=== PATIENT | female | born 1965 | race American Indian/Alaskan Native ===

== ENCOUNTER 2016-10-29 11:02 | Emergency (ER) | payer MEDICARE ==
[2016-10-29 11:47] VITALS: BP 118/82
[2016-10-29] MEDS ORDERED: NACL 0.9% 1000 ML 1,000 ML IV ONE (12:09)
[2016-10-29 12:37] LABS: Basophils % (Auto) 0.7 % (0.0-1.8); Eosinophils % (Auto) 0.7 % (0.0-4.3); Hematocrit 41.5 % (30.3-42.9); Hemoglobin 13.5 gm/dl (10.1-14.3); Mean Corpuscular HGB Conc 33 % (30-34); Mean Corpuscular Hemoglobin 27 pg (28-32); Mean Corpuscular Volume 83 fl (79-97); Platelet Count 319 K/mm3 (140-440); Red Blood Count 5.01 M/mm3 (3.65-5.03); Red Cell Distribution Width 13.6 % (13.2-15.2)
[2016-10-29 12:55] LABS: Alanine Aminotransferase 12 units/L (7-56); Albumin 3.9 g/dL (3.9-5); Alkaline Phosphatase 106 units/L (35-129); Amylase 57 units/L (27-131); BUN/Creatinine Ratio 22.85; Bilirubin,Total 0.4 mg/dL (0.1-1.2); Blood Urea Nitrogen 16 mg/dL (7-17); Calcium 9.6 mg/dL (8.4-10.2); Carbon Dioxide 19 mmol/L (22-30); Glucose 241 mg/dL (65-100); Lipase 28 units/L (13-60); Total Protein 7.7 g/dL (6.3-8.2)
[2016-10-29 12:56] LABS: Anion Gap 21 mmol/L; Chloride 96.6 mmol/L (98-107); Potassium 3.9 mmol/L (3.6-5.0); Sodium 133 mmol/L (137-145)
--- NOTE | 2016-10-29 16:34 | Emergency Department Report ---
Entered by SARAH BETH TUTTLE, acting as scribe for ZEV DENNY NP. Chief Complaint: Nausea/Vomiting/Diarrhea Stated Complaint: BP LOW/SENT BY PHY/NEED FLUIDS Time Seen by Provider: 10/29/16 12:00 - HPI History of Present Illness: Patient presents to the ED c/o of low blood sugar that began 3 days ago. Associated symptoms include nausea, lightheadedness, and abdominal pain. Denies vomiting and diarrhea. Patient had lab work done 3 days ago and PCP was concerned with her blood sugar level, and advised her to come to the ED. An ultrasound and Ct scan was taken, and her ultrasound results were normal. The CT scan results hasn't came back yet. - ROS Review of Systems: All systems are negative unless stated in HPI above. - Exam Vital Signs: Vital Signs 10/29/16 11:39 Temperature 98.5 F Pulse Rate 106 H Respiratory 16 Rate Blood Pressure 118/82 O2 Sat by Pulse 98 Oximetry Physical Exam: General: alert and oriented x 3 MSE screening note: Focused history and physical exam performed. Due to findings the following was ordered: ED Medical Decision Making - Lab Data Result diagrams: 10/29/16 12:19 10/29/16 12:19 - Medical Decision Making Patient seen by provider in fast track. Patient will be taken to get lab work done. SENT BY PCP RECENT US NEG CT PENDING FOR EVAL ED Disposition for MSE Condition: Stable This documentation as recorded by the scribe,SARAH BETH TUTTLE,accurately reflects the service I personally performed and the decisions made by me,ZEV CERRATO NP.
--- NOTE | 2016-10-30 14:20 | ED Elopement Review ---
ED Pt Elopement review - Results review Lab results: Laboratory Tests 10/29/16 10/29/16 10/29/16 11:41 12:19 12:19 WBC 9.0 RBC 5.01 Hgb 13.5 Hct 41.5 MCV 83 MCH 27 L MCHC 33 RDW 13.6 Plt Count 319 Lymph % (Auto) 30.6 [place] % (Auto) 6.7 Eos % (Auto) 0.7 Baso % (Auto) 0.7 Lymph # 2.8 [place] # 0.6 Eos # 0.1 Baso # 0.1 Seg Neutrophils % 61.3 Seg Neutrophils # 5.5 Sodium 133 L Potassium 3.9 Chloride 96.6 L Carbon Dioxide 19 L Anion Gap 21 BUN 16 Creatinine 0.7 Estimated GFR > 60 BUN/Creatinine Ratio 22.85 Glucose 241 H POC Glucose 245 H Calcium 9.6 Total Bilirubin 0.4 AST 13 ALT 12 Alkaline Phosphatase 106 Troponin T < 0.010 Total Protein 7.7 Albumin 3.9 Albumin/Globulin Ratio 1.0 Amylase 57 Lipase 28 - Call Back decision Pt Call Back Decision: Call pt to return to ED TRENT (abdominal pain and tachycardia should be further evaluated)
== END 2016-10-29 21:10 | disposition left against medical advice (07) ==
LOC: ED 11:02
DX: I95.9 Hypotension, unspecified (principal); R11.0 Nausea; R42 Dizziness and giddiness; Z53.21 Procedure and treatment not carried out due to patient leaving prior to being seen by health care provider; Z88.2 Allergy status to sulfonamides
CPT/HCPCS: 36415; 80053; 82150; 82962; 83690; 84484; 85025

== ENCOUNTER 2017-08-26 18:26 | Inpatient (IN) | payer MEDICARE ==
[2017-08-26] MEDS ORDERED: ASPIRIN PO ONE (18:59)
[2017-08-26 19:24] LABS: Basophils # (Auto) 0.1 K/mm3 (0.0-0.1); Basophils % (Auto) 0.8 % (0.0-1.8); Eosinophils # (Auto) 0.1 K/mm3 (0.0-0.4); Hematocrit 38.9 % (30.3-42.9); Hemoglobin 12.7 gm/dl (10.1-14.3); Lymphocytes # (Auto) 2.8 K/mm3 (1.2-5.4); Lymphocytes % (Auto) 29.3 % (13.4-35.0); Mean Corpuscular HGB Conc 33 % (30-34); Mean Corpuscular Hemoglobin 27 pg (28-32); Mean Corpuscular Volume 83 fl (79-97); Monocytes # (Auto) 0.6 K/mm3 (0.0-0.8); Monocytes % (Auto) 6.5 % (0.0-7.3); Platelet Count 351 K/mm3 (140-440); Red Blood Count 4.67 M/mm3 (3.65-5.03); Red Cell Distribution Width 13.7 % (13.2-15.2)
[2017-08-26 19:39] LABS: BUN/Creatinine Ratio 14; Blood Urea Nitrogen 10 mg/dL (7-17); Calcium 9.5 mg/dL (8.4-10.2); Hemolysis Index 6
--- NOTE | 2017-08-26 21:13 | XRay Report ---
FINAL REPORT EXAM: XR CHEST ROUTINE 2V HISTORY: c/o SOB with chest pain TECHNIQUE: Two views of the chest Comparison: None FINDINGS: Normal heart size. Mildly elevated medial right hemidiaphragm. No focal infiltrates or consolidation. No effusion. Imaged axial skeleton is unremarkable. IMPRESSION: Mildly elevated medial right hemidiaphragm. No definite acute cardiopulmonary disease. No pneumothorax.
[2017-08-26] MEDS ORDERED: MORPHINE IV ONE (23:05)
[2017-08-26] MEDS ORDERED: ZOFRAN IV ONE (23:05)
--- NOTE | 2017-08-26 23:13 | Emergency Department Report ---
HPI - General Chief Complaint: Chest Pain Time Seen by Provider: 08/26/17 22:57 - HPI HPI: Room 26 The patient is a 52-year-old female presented with the chief complaint chest and back pain. The patient states for the past 3 days she has had pain in the upper back and substernal chest described as sharp in nature associated with shortness of breath, nausea and vomiting and diaphoresis. The patient admits to pleurisy. The patient states today she developed a cough as productive yellow sputum. When asked if she's had rhinorrhea the patient replies "a little bit." The patient currently gives her chest pain and score of 10/10. The patient states she had a normal stress test in 2017. The patient could not recall the last time she had a cardiac catheterization but according to my note in 2012 she had a cath at [facility] in 2009 Location: [See above] Duration: 3 days Quality: Sharp Severity: 10/10 Modifying factors: [see above] Context: [see above] Mode of transportation: [not driving] ED Past Medical Hx - Past Medical History Previous Medical History?: Yes Hx Hypertension: Yes (OFF MEDS X 4 MONTHS) Hx Diabetes: Yes (ON INSULIN) Hx GERD: Yes Hx Renal Disease: (on Lisinopril for kidney protection) Hx Psychiatric Treatment: Yes (depression) Additional medical history: Spontaneous right pneumothorax requiring a chest tube () - Surgical History Past Surgical History?: Yes Additional Surgical History: Hysterectomy, section x3, right chest tube - Family History Family history: no significant - Social History Smoking Status: Former Smoker (none 7 years) Substance Use Type: None (denies illicit drug use), Alcohol (occasional) - Medications Home Medications: Home Medications Medication Instructions Recorded Confirmed Last Taken Type metFORMIN [Glucophage] 1,000 mg PO BID #60 tablet 12/07/14 07/22/15 07/21/15 14: 00 Rx Aspirin [Adult Low Dose Aspirin EC] 81 mg PO DAILY 07/12/15 07/22/15 07/15/15 History Insulin Glargine [Lantus VIAL] 1 unit SUB-Q TID 07/12/15 07/22/15 Unknown History Insulin Lispro [HumaLOG VIAL] 35 units SUB-Q QAM 07/12/15 07/22/15 Unknown History Insulin Lispro [HumaLOG VIAL] 35 units SUB-Q QPM 07/12/15 07/22/15 07/21/15 19: 00 History Lisinopril [Zestril TAB] 40 mg PO DAILY 07/12/15 07/22/15 07/21/15 14:00 History Pediatric Multivit 61/D3/Vit K 1 cap PO DAILY 07/12/15 07/22/15 07/15/15 History [Mvw Complete Form Multivi Sfgl] Rosuvastatin Calcium [Crestor] 40 mg PO DAILY 07/12/15 07/22/15 07/21/15 14:00 History Insulin Lispro [HumaLOG VIAL] 15 units SQ QHS 07/20/15 07/22/15 07/20/15 History HYDROcodone/APAP 5-325 [[place] 1 each PO Q6HR PRN #30 tablet 07/22/15 Unknown Rx 5/325] ED Review of Systems ROS: Stated complaint: CHEST/BACK PAIN Other details as noted in HPI Constitutional: diaphoresis, fever (subjective) ENT: other (slight rhinorrhea) Respiratory: cough, shortness of breath Cardiovascular: chest pain Gastrointestinal: nausea, vomiting Musculoskeletal: back pain Physical Exam - Physical Exam Vital Signs: Vital Signs 08/26/17 18:55 Temperature 97.9 F Pulse Rate 94 H Respiratory 20 Rate Blood Pressure 151/81 O2 Sat by Pulse 100 Oximetry Physical Exam: GENERAL: The patient is well-developed well-nourished female lying on stretcher appearing to be in moderate discomfort. [] HEENT: Normocephalic. Atraumatic. Extraocular motions are intact. Patient has moist mucous membranes. NECK: Supple. Trachea midline CHEST/LUNGS: Clear to auscultation. There is no respiratory distress noted. HEART/CARDIOVASCULAR: Regular. There is no tachycardia. There is no gallop rub or murmur. ABDOMEN: Abdomen is soft, nontender. Patient has normal bowel sounds. There is no abdominal distention. SKIN: There is no rash. There is no edema. There is no diaphoresis. NEURO: The patient is awake, alert, and oriented. The patient is cooperative. The patient has normal speech MUSCULOSKELETAL: There is no evidence of acute injury. ED Course Vital Signs 08/26/17 18:55 Temperature 97.9 F Pulse Rate 94 H Respiratory 20 Rate Blood Pressure 151/81 O2 Sat by Pulse 100 Oximetry ED Medical Decision Making - Lab Data Result diagrams: 08/26/17 19:07 08/26/17 19:07 Laboratory Tests 08/26/17 08/26/17 08/26/17 19:07 19:07 22:06 WBC 9.4 RBC 4.67 Hgb 12.7 Hct 38.9 MCV 83 MCH 27 L MCHC 33 RDW 13.7 Plt Count 351 Lymph % (Auto) 29.3 [place] % (Auto) 6.5 Eos % (Auto) 1.0 Baso % (Auto) 0.8 Lymph # 2.8 [place] # 0.6 Eos # 0.1 Baso # 0.1 Seg Neutrophils % 62.4 Seg Neutrophils # 5.9 Sodium 138 Potassium 4.2 Chloride 100.6 Carbon Dioxide 20 L Anion Gap 22 BUN 10 Creatinine 0.7 Estimated GFR > 60 BUN/Creatinine Ratio 14 Glucose 166 H Calcium 9.5 Troponin T < 0.010 < 0.010 - EKG Data -: EKG Interpreted by Me EKG shows normal: sinus rhythm Rate: normal - EKG Data When compared to previous EKG there are: no significant change Interpretation: unchanged when compared t (12/07/2014) - Radiology Data Radiology results: report reviewed (CT chest), image reviewed (chest x-ray, CT chest) interpreted by me: Chest x-ray-no focal infiltrates, no pneumothorax CT chest (read by radiologist)-no evidence of pulmonary embolus or aortic dissection. Bilateral atelectatic changes both lower lobes - Differential Diagnosis PE, ACS, pneumonia, pneumothorax Critical care attestation.: If time is entered above; I have spent that time in minutes in the direct care of this critically ill patient, excluding procedure time. ED Disposition Clinical Impression: Chest pain Disposition: DC-09 OP ADMIT IP TO THIS HOSP Is pt being admited?: Yes Does the pt Need Aspirin: Yes Condition: Fair Instructions: Chest Pain (ED) Time of Disposition: 00:59 (hospitalist paged (Dr. Siri Zepeda))
[2017-08-26] MEDS ORDERED: NACL ONE (23:24)
--- NOTE | 2017-08-27 00:53 | Cat Scan Report ---
FINAL REPORT EXAM: CT ANGIO CHEST HISTORY: chest pain, pleurisy, shortness of breath TECHNIQUE: A CT angiogram was performed following the intravenous injection of 100 cc of Omnipaque 350. Rotational, sagittal coronal MIP reconstructions were reviewed. Comparison is made to the previous study of 04/23/2013. FINDINGS: There is no evidence of pulmonary embolus or aortic dissection. The thoracic aorta is normal in caliber. The heart size is normal. Pericardial fluid is not seen. There is no evidence of adenopathy. The lungs reveal atelectatic changes in both lower lobes. Pleural fluid is not seen. At the thoracic inlet the thyroid gland appears normal. The skeletal structures reveal endplate spurring throughout the thoracic spine. In the upper abdomen the adrenal glands are not enlarged. IMPRESSION: No evidence of pulmonary embolus or aortic dissection. Bilateral atelectatic changes both lower lobes.
[2017-08-27] MEDS ORDERED: NITRO-BID 2% TP ONE (01:00)
[2017-08-27] MEDS ORDERED: ASPIRIN ONE (01:06)
[2017-08-27] MEDS: MORPHINE IV PRN ×2 (07:46→14:37)
[2017-08-27] MEDS ORDERED: PROVENTIL IH PRN (11:06)
[2017-08-27] MEDS ORDERED: D50W (25GM) Syringe IV PRN (11:08)
[2017-08-27] MEDS ORDERED: DHA PO SCH (11:15)
[2017-08-27] MEDS ORDERED: FISH OIL PO SCH (11:15)
[2017-08-27] MEDS ORDERED: EPA PO SCH (11:15)
[2017-08-27] MEDS ORDERED: OMEGA PO SCH (11:15)
--- NOTE | 2017-08-27 11:15 | History and Physical Report ---
History of Present Illness Date of examination: 08/27/17 Date of admission: 08/27/17 06:12 Chief complaint: Chest pains History of present illness: Patient is a 52-year-old woman (her name is Cely Goodwin but she goes by her madame name of Sb interesting enough that is at bedside , EKG labeling is wrong) with a history of NIDDM type 2, Hypertenison, Schizophrenia, GERD, Wheezing without diagonsis of asthma or COPD but on albuterol inhaler and spontaneous PTX who presents to [facility] ED with chest and back pains. The pains started 3-4 days ago and located in the upper back and substernal chest area described as a constant severe worsening tightness associated with movement, deep breathing, shortness of breath, nausea without vomiting, dizziness, and a productive yellow cough. The patient states she had a normal stress test in 2016 and a distant cardiac catheterization around 2012. Past Medical History: as Hpi and renal disease in the past, she was told that she had schizophrenia after she was hearing voices and placed on Risperdal, denies SI or HI, Additional medical history: Spontaneous right pneumothorax requiring a chest tube () Past Surgical History: Hysterectomy, section x3, right chest tube, cardiac catherization Family History: Mother had heart attack in her late 60s, sister had a stroke in her 50s, both had DM, HTN Social History: Former Smoker (none 7 years), denies illicit drug use, Alcohol (occasional) Medications and Allergies Allergies Allergy/AdvReac Type Severity Reaction Status Date / Time Sulfa (Sulfonamide AdvReac Itching Verified 04/23/13 02:45 Antibiotics) Home Medications Medication Instructions Recorded Confirmed Last Taken Type metFORMIN [Glucophage] 1,000 mg PO BID #60 tablet 12/07/14 08/27/17 07/21/15 14: 00 Rx Aspirin [Adult Low Dose Aspirin EC] 81 mg PO DAILY 07/12/15 08/27/17 07/15/15 History Insulin Glargine [Lantus VIAL] 1 unit SUB-Q TID 07/12/15 08/27/17 Unknown History Insulin Lispro [HumaLOG VIAL] 35 units SUB-Q QAM 07/12/15 08/27/17 Unknown History Insulin Lispro [HumaLOG VIAL] 35 units SUB-Q QPM 07/12/15 08/27/17 07/21/15 19: 00 History Lisinopril [Zestril TAB] 20 mg PO DAILY 07/12/15 08/27/17 07/21/15 14:00 History Rosuvastatin Calcium [Crestor] 40 mg PO DAILY 07/12/15 08/27/17 07/21/15 14:00 History Insulin Lispro [HumaLOG VIAL] 15 units SQ QHS 07/20/15 08/27/17 07/20/15 History ALBUTEROL Inhaler [Proair] 2 puff IH QID PRN 08/27/17 08/27/17 Unknown History Ergocalciferol (Vitamin D2) 1,250 unit PO 1XW 08/27/17 08/27/17 Unknown History [Ergocal] Gabapentin [Neurontin] 100 mg PO Q8HR 08/27/17 08/27/17 Unknown History [place]-3/Dha/Epa/Fish Oil [[place] 3 1 gm PO BID 08/27/17 08/27/17 Unknown History 500 Softgel] Omeprazole 40 mg PO DAILY 08/27/17 08/27/17 Unknown History Rosuvastatin (Nf) [Crestor] 10 mg PO DAILY 08/27/17 08/27/17 Unknown History risperiDONE [RisperiDONE] 1 mg PO QDAY 08/27/17 08/27/17 Unknown History Active Meds: Active Medications Albuterol (Proventil) 2.5 mg IH Q4HRT PRN PRN Reason: Shortness Of Breath Aspirin (Halfprin Ec) 81 mg PO DAILY FABIAN Dextrose (D50w (25gm) Syringe) 50 ml IV PRN PRN PRN Reason: Hypoglycemia Gabapentin (Neurontin) 100 mg PO Q8HR FABIAN Insulin Aspart (Novolog) 0 units SUB-Q ACHS FABIAN PRN Reason: Protocol Insulin Detemir (Levemir) 20 units SUB-Q QHS FABIAN Lisinopril (Zestril) 20 mg PO DAILY FABIAN Miscellaneous Medication (Ergocalciferol (Vitamin D2) [Ergocal]) 1,250 unit PO 1XW FABIAN Miscellaneous Medication ([place]-3/Dha/Epa/Fish Oil [[place] 3 500 Softgel]) 1 gm PO BID FABIAN Miscellaneous Medication (Omeprazole [Omeprazole]) 40 mg PO DAILY FABIAN Miscellaneous Medication (Rosuvastatin (Nf)) 10 mg PO DAILY [facility] Miscellaneous Medication (Rosuvastatin Calcium [Crestor]) 40 mg PO DAILY [facility] Morphine Sulfate (Morphine) 2 mg IV Q4H PRN PRN Reason: Pain, Moderate (4-6) Last Admin: 08/27/17 07:46 Dose: 2 mg Risperidone (Risperdal) 1 mg PO QDAY FABIAN Review of Systems All systems: negative Cardiovascular: chest pain, shortness of breath Allergic/Immunologic: wheezing Exam - Physical Exam Narrative exam: VSS reviewed and BP better at bedside, 134/76 RR 16, HR 82 GENERAL: The patient is well-developed well-nourished female lying on stretcher appearing to be in moderate discomfort. [] HEENT: Normocephalic. Atraumatic. Extraocular motions are intact. Patient has moist mucous membranes. NECK: Supple. Trachea midline CHEST/LUNGS: Clear to auscultation. There is no respiratory distress noted. HEART/CARDIOVASCULAR: Regular. There is no tachycardia. There is no gallop rub or murmur. ABDOMEN: Abdomen is soft, nontender. Patient has normal bowel sounds. There is no abdominal distention. SKIN: There is no rash. There is no edema. There is no diaphoresis. NEURO: The patient is awake, alert, and oriented. The patient is cooperative. The patient has normal speech MUSCULOSKELETAL: There is no evidence of acute injury. Psychiatric: Calm - Constitutional Vitals: Temp Pulse Resp BP Pulse Ox 98 F 80 28 H 138/84 98 08/26/17 23:22 08/27/17 10:00 08/27/17 10:00 08/27/17 10:00 08/27/17 10:00 Results - Labs CBC & Chem 7: 08/26/17 19:07 08/26/17 19:07 Labs: Abnormal lab results 08/26/17 08/26/17 Range/Units 19:07 19:07 MCH 27 L (28-32) pg Carbon Dioxide 20 L (22-30) mmol/L Glucose 166 H (65-100) mg/dL Assessment and Plan Patient is a 52-year-old woman (her name is Cely Basurto Buddy but she goes by her madame name of Sb interesting enough that is at bedside , EKG labeling is wrong) with a history of NIDDM type 2, Hypertenison, Schizophrenia, GERD, Wheezing without diagonsis of asthma or COPD but on albuterol inhaler and spontaneous PTX who presents to [facility] ED with chest and back pains. The pains started 3-4 days ago and located in the upper back and substernal chest area described as a constant severe worsening tightness associated with movement, deep breathing, shortness of breath, nausea without vomiting, dizziness, and a productive yellow cough. The patient states she had a normal stress test in 2016 and a distant cardiac catheterization around 2012. Patient states that she was at [facility] about 2 days ago with same symptoms and eloped because they wouldn't give her pain medications. 2v CXR reported as mildly elevated right hemidiaphragm, no acute findings, no pneumothorax CTA chest reported as no pulmonary embolism, bilateral atelectasis lower lobes -Atypical chest pain most likely due to atelectasis: stress test a.m. -Bilateral atelectasis without pneumonia: Treated with incentive spirometer, nebulizer treatment -Type 2 diabetes mellitus on insulin, she is on Lantus 55 units at bedtime and Humalog sliding scale: Reduse dose of Lantus b/c NPO stress test a.m. -Hypertension: Continue home medications. -Schizophrenia: continue Risperdal. full code
[2017-08-27] MEDS: NON-FORMULARY (Omeprazole [Omeprazole] 40 MG) PO SCH (12:40)
[2017-08-27] MEDS: NOVOLOG SUB-Q SCH ×3 (12:58→22:18)
[2017-08-27] MEDS: PROTONIX PO SCH (13:28)
[2017-08-27] MEDS: NEURONTIN PO SCH ×2 (14:00→22:18)
[2017-08-27] MEDS ORDERED: NORCO 10/325 PO PRN (15:43)
[2017-08-27] MEDS ORDERED: MORPHINE IV PRN (15:43)
--- NOTE | 2017-08-27 16:36 | XRay Report ---
FINAL REPORT PROCEDURE: XR SPINE LUMBOSACRAL 2-3V TECHNIQUE: AP and lateral views HISTORY: severe back pains COMPARISON: None FINDINGS: There is no evident fracture or subluxation. There no blastic or lytic lesion. Moderate degenerative disc disease at L5/S1 with associated moderate facet DJD is seen. IMPRESSION: Moderate degenerative changes at L5/S1. Consider MRI for further evaluation particularly to exclude disc herniation and central canal and foraminal stenosis.
--- NOTE | 2017-08-27 16:41 | XRay Report ---
FINAL REPORT PROCEDURE: XR SPINE THORACIC 2V TECHNIQUE: AP and lateral views HISTORY: severe back pains COMPARISON: None FINDINGS: Mild multilevel degenerative disc disease is present. There is no evident vertebral body or posterior element fracture. There no blastic or lytic lesion. There is no subluxation. IMPRESSION: Mild multilevel degenerative disc disease. Consider if disc herniation, central canal or foraminal stenosis is of concern, follow-up with MRI.
--- NOTE | 2017-08-27 16:45 | XRay Report ---
FINAL REPORT PROCEDURE: XR SPINE CERVICAL 2-3V TECHNIQUE: Lateral, swimmer's, open-mouth, suboccipital and AP views HISTORY: severe back pains COMPARISON: None FINDINGS: The atlantodental articulation is intact. There is no evident vertebral body or posterior element fracture. There is no subluxation. Intervertebral disc heights and facet joints are largely maintained. IMPRESSION: Unremarkable examination. If symptoms persist consider MRI for further evaluation.
[2017-08-27] MEDS: NORCO 5/325 PO PRN (19:24)
[2017-08-27] MEDS ORDERED: NON-FORMULARY (Rosuvastatin Calcium [Crestor] 40 MG) PO SCH (22:00)
[2017-08-27] MEDS ORDERED: LEVEMIR SUB-Q SCH (22:00)
[2017-08-27] MEDS: FISH OIL PO SCH (22:18)
[2017-08-28] MEDS: NORCO 5/325 PO PRN ×2 (00:02→09:19)
[2017-08-28] MEDS: NEURONTIN PO SCH ×2 (06:18→13:42)
[2017-08-28] MEDS: NOVOLOG SUB-Q SCH ×2 (07:30→13:00)
[2017-08-28] MEDS ORDERED: NORCO 5/325 ONE (09:16)
[2017-08-28] MEDS ORDERED: LEXISCAN IV ONE (09:21)
[2017-08-28] MEDS ORDERED: REGLAN ONE (09:42)
[2017-08-28] MEDS ORDERED: VITAMIN D2 PO SCH (10:00)
[2017-08-28] MEDS ORDERED: RisperDAL PO SCH (10:00)
[2017-08-28] MEDS ORDERED: ZESTRIL PO SCH (10:00)
[2017-08-28] MEDS ORDERED: HALFPRIN EC PO SCH (10:00)
[2017-08-28] MEDS ORDERED: NON-FORMULARY (Rosuvastatin (Nf) 10 MG) PO SCH (10:00)
[2017-08-28] MEDS ORDERED: PNEUMOVAX 23 IM ONE (12:00)
[2017-08-28] MEDS ORDERED: Fluarix Quad 2017-2018(36 MOS+ IM ONE (12:00)
[2017-08-28 12:15] VITALS: BP 113/85
[2017-08-28] MEDS: NON-FORMULARY (Omeprazole [Omeprazole] 40 MG) PO SCH (13:00)
[2017-08-28] MEDS: FISH OIL PO SCH (13:00)
[2017-08-28] MEDS: PROTONIX PO SCH (13:00)
--- NOTE | 2017-08-28 14:18 | Discharge Summary ---
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 The pains started 3-4 days ago and located in the upper back and substernal chest area described as a constant severe worsening tightness associated with movement, deep breathing, shortness of breath, nausea without vomiting, dizziness, and a productive yellow cough. The patient states she had a normal stress test in 2016 and a distant cardiac catheterization around 2012. Patient states that she was at [facility] about 2 days ago with same symptoms and eloped because they wouldn't give her pain medications. 2v CXR reported as mildly elevated right hemidiaphragm, no acute findings, no pneumothorax CTA chest reported as no pulmonary embolism, bilateral atelectasis lower lobes -Atypical chest pain most likely due to atelectasis: stress test negative -Bilateral atelectasis without pneumonia: Treated with incentive spirometer, nebulizer treatment -Type 2 diabetes mellitus on insulin, she is on Lantus 55 units at bedtime and Humalog sliding scale: Reduse dose of Lantus b/c npo, so hyperglycemia expected -Hypertension: Continue home medications. -Schizophrenia: continue Risperdal. full code Disposition: DC-01 TO HOME OR SELFCARE Time spent for discharge: 36 min Core Measure Documentation - Palliative Care Palliative Care/ Comfort Measures: Not Applicable - Core Measures Any of the following diagnoses?: none - VTE Discharge Requirements Deep Vein Thrombosis/Pulmonary Embolism Present on Admission: No Has pt received <5 days of overlap therapy or INR<2.0: No Anticoagulant overlap therapy prescribed at discharge: No Contraindication No Overlap Therapy order at DC: Not Indicated Exam - Physical Exam Narrative exam: VSS reviewed and BP better at bedside, 134/76 RR 16, HR 82 GENERAL: The patient is well-developed well-nourished female lying on stretcher appearing to be in moderate discomfort. [] HEENT: Normocephalic. Atraumatic. Extraocular motions are intact. Patient has moist mucous membranes. NECK: Supple. Trachea midline CHEST/LUNGS: Clear to auscultation. There is no respiratory distress noted. HEART/CARDIOVASCULAR: Regular. There is no tachycardia. There is no gallop rub or murmur. ABDOMEN: Abdomen is soft, nontender. Patient has normal bowel sounds. There is no abdominal distention. SKIN: There is no rash. There is no edema. There is no diaphoresis. NEURO: The patient is awake, alert, and oriented. The patient is cooperative. The patient has normal speech MUSCULOSKELETAL: There is no evidence of acute injury. Psychiatric: Calm - Constitutional Vitals: Temp Pulse Resp BP Pulse Ox 98.6 F 85 19 113/85 98 08/28/17 12:15 08/28/17 12:00 08/28/17 11:45 08/28/17 11:45 08/28/17 11:45 Plan Activity: other (no strenous activity until cleared by pcp) Diet: low salt, diabetic Special Instructions: record daily BP diary, record blood sugar diary Follow up with: MAL POTTER MD [Primary Care Provider] - 7 Days Prescriptions: HYDROcodone/APAP 5-325 [[place] 5-325 mg TAB] 1 each PO Q4H PRN #20 tablet PRN Reason: Pain , Severe (7-10) Insulin Lispro [HumaLOG VIAL] 1 dose SQ AC #1 vial
--- NOTE | 2017-08-28 23:39 | Treadmill Report ---
INDICATION: Chest pain. ORDERING PHYSICIAN: Xavier Valdez MD FINDINGS: There is no scintigraphic evidence of myocardial ischemia. The left ventricle is normal in size and systolic function, left ventricular ejection fraction is measured at 66%. Normal wall motion and wall thickening is noted on gated imaging. CONCLUSION: Normal perfusion scan. JOB# [id number] AKMemo/NTS
== END 2017-08-28 15:38 | disposition home or self-care (01) | DRG 206 ==
LOC: ED 18:26 → 4A 08-27 06:12
PROVIDERS: ADMIT Internal Medicine; ATTEND Internal Medicine
PROC: 3E0234Z Introduction of Serum, Toxoid and Vaccine into Muscle, Percutaneous Approach (ICD-10-PCS; principal; 2017-08-28)
DX: J98.11 Atelectasis (principal); E11.9 Type 2 diabetes mellitus without complications; I10 Essential (primary) hypertension; F20.9 Schizophrenia, unspecified; K21.9 Gastro-esophageal reflux disease without esophagitis; J44.9 Chronic obstructive pulmonary disease, unspecified; M54.9 Dorsalgia, unspecified; F32.9 Major depressive disorder, single episode, unspecified; Z90.710 Acquired absence of both cervix and uterus; Z87.891 Personal history of nicotine dependence; Z83.3 Family history of diabetes mellitus; Z82.49 Family history of ischemic heart disease and other diseases of the circulatory system; Z82.3 Family history of stroke; Z23 Encounter for immunization
CPT/HCPCS: 36415; 71046; 71275; 72040; 72070; 72100; 78452; 80048; 82962; 84484; 85025; 90686; 90732; 93005; 93010; 93017; 96374; 96375; A9270-GY; A9502; J1815; J1818; J2270; J2405; J2765; J2785; Q9967